=== PATIENT | female | born 1960 | race Caucasian/White ===

== ENCOUNTER 2016-11-24 05:50 | Inpatient (IN) | payer OTHER ==
[2016-11-24] VITALS (9 sets, daily range): BP systolic 98–131; BP diastolic 54–68; PULSE 78–98; RESP 19–20; TEMP 98.1; Ht 152.4 cm; Wt 57.5 kg
[~2016-11-24] VITALS: Ht 152.4 cm; Wt 57.5 kg
[2016-11-24] MEDS ORDERED: ALBUTEROL 0.5% (NEB) 2.5 MG/0.5 ML AMP INH STA (06:10)
[2016-11-24] MEDS ORDERED: IPRATROPIUM (NEB) 0.5 MG/2.5 ML AMP INH STA (06:10)
[2016-11-24] MEDS ORDERED: METHYLPREDNISOLONE 125 MG INJ IV STA (06:10)
--- NOTE | 2016-11-24 06:38 | RADRPT ---
PROCEDURE: XR Chest. CLINICAL INDICATION: Asthma exacerbation TECHNIQUE: Portable single view of the chest COMPARISON: None. FINDINGS: The heart size appears within normal limits. No acute infiltrate, pleural effusion, or overt conges tive heart failure is seen. What appears to be a 1.1 cm nodular density in the right upper lobe mos t likely represents sclerotic articulation of the right anterior first rib with the manubrium. IMPRESSION: No acute disease. Probable sclerotic right anterior first rib articulation. Oblique and lordotic v iews of the chest would help to confirm this. RPTAT: [facility] Physician Meg Date Time Electronically viewed and signed by Veronica Ledesma Physician on 11/24/2016 06:38 LE/
[2016-11-24 07:13] LABS: ADD SCAN DIFF NO
[2016-11-24 07:20] LABS: BASOPHILS % 0.3 % (0.0-2.0); EOSINOPHILS # 0.1 10^3/ul (0.0-0.5); EOSINOPHILS % 1.4 % (0.0-7.0); HEMATOCRIT 44.2 % (37.0-47.0); HEMOGLOBIN 14.2 g/dl (12.0-16.0); LYMPHOCYTES # 1.3 10^3/ul (0.8-2.9); LYMPHOCYTES % 13.4 % (15.0-51.0); MEAN CORPUSCULAR HEMOGLOBIN 29.7 pg (29.0-33.0); MEAN CORPUSCULAR HGB CONC 32.1 g/dl (32.0-37.0); MEAN CORPUSCULAR VOLUME 92.5 fl (82.0-101.0); MEAN PLATELET VOLUME 13.3 fl (7.4-10.4); MONOCYTE # 0.4 10^3/ul (0.3-0.9); MONOCYTES % 3.9 % (0.0-11.0); NEUTROPHIL # 7.6 10^3/ul (1.6-7.5); NEUTROPHILS % 80.7 % (39.0-77.0); PLATELET COUNT 103 10^3/UL (140-415); RED BLOOD COUNT 4.78 10^6/ul (4.20-5.40); WHITE BLOOD COUNT 9.4 10^3/ul (4.8-10.8)
[2016-11-24] MEDS ORDERED: GLIM2TAB PO (07:22)
[2016-11-24] MEDS ORDERED: METF500T4 PO (07:22)
[2016-11-24 07:34] LABS: POTASSIUM 4.4 mmol/L (3.5-5.1)
[2016-11-24 07:37] LABS: CREATININE 0.69 mg/dl (0.44-1.00)
[2016-11-24 07:38] LABS: CALCIUM 8.8 mg/dl (8.4-10.2)
[2016-11-24 07:49] LABS: TROPONIN-I 0.017 ng/ml (0.00-0.12)
[2016-11-24] MEDS ORDERED: ALBUTEROL 0.5% (NEB) 2.5 MG/0.5 ML AMP HHN STA (07:49)
[2016-11-24] MEDS ORDERED: ASPIRIN 325 MG TAB PO ONE (08:00)
[2016-11-24] MEDS ORDERED: ACETAMINOPHEN 325 MG TAB PO PRN ×2 (08:00→11:30)
[2016-11-24] MEDS ORDERED: ONDANSETRON 4 MG INJ IV PRN (08:00)
[2016-11-24] MEDS ORDERED: SOD CHLORIDE 0.9% 1,000 ML IV ONE (08:00)
--- NOTE | 2016-11-24 08:19 | ERA ---
ER Documentation Chief Complaint Date/Time DATE: 11/24/16 TIME: 08:13 Chief Complaint Shortness of breath. tachypneic. No hx of asthma. cough since yesterday HPI This 56-year-old female presents for progressive shortness of breath that began yesterday as well as chest pain pain with cough. She has a history of diabetes but does not have a physician in the [place]. She has seen a doctor in [place] before. She has no history of asthma and has never smoked and neither has her . She denies any nausea vomiting or weakness. ROS All systems reviewed and are negative except as per history of present illness. Medications Home Meds Reported Medications Glimepiride* (Glimepiride*) Unknown Strength Tablet, PO WITH BREAKFAST DINNE, TAB 11/24/16 Metformin* (Glucophage*) Unknown Strength Tab, PO WITH LUNCH DINNER, #60 TAB 11/24/16 Allergies Allergies: Coded Allergies: No Known Allergy (Unverified , 11/24/16) PMhx/Soc History of Surgery: No Anesthesia Reaction: No Hx Neurological Disorder: No Hx Respiratory Disorders: No Hx Cardiac Disorders: No Hx Psychiatric Problems: No Hx Miscellaneous Medical Probl: Yes (DM) Hx Alcohol Use: No Hx Substance Use: No Hx Tobacco Use: No Smoking Status: Never smoker Physical Exam Vitals Vital Signs Date Time Temp Pulse Resp B/P Pulse Ox O2 Delivery O2 Flow Rate FiO2 11/24/16 07:51 98.3 108 24 113/74 95 Nasal Cannula 2.0 11/24/16 06:30 3.0 11/24/16 06:25 94 22 97 Nasal Cannula 3.0 11/24/16 06:05 Nasal Cannula 2.0 11/24/16 06:05 101 33 143/101 95 Room Air 11/24/16 06:05 Nasal Cannula 2 11/24/16 05:52 98.3 102 30 135/84 92 Physical Exam Const: [] Mild distress, tachypnea Head: Atraumatic Eyes: Normal Conjunctiva ENT: Normal External Ears, Nose and Mouth. Neck: Full range of motion..~ No meningismus. Resp: Loud pronounced bilateral expiratory wheezes, mild tachypnea Cardio: Regular mild tachycardia with occasional premature beats, no murmurs Abd: Soft, non tender, non distended. Normal bowel sounds Skin: No petechiae or rashes Ext: No cyanosis, or edema Neur: Awake and alert and oriented 3, no focal deficit Psych: Normal Mood and Affect Result Diagram: 11/24/1662711/24/16627 Results 24 hrs Laboratory Tests Test 11/24/16 06:28 Anion Gap 17 B-Type Natriuretic Peptide 61PG/ML Basophils # 0.010^3/ul Basophils % 0.3% Blood Urea Nitrogen 23mg/dl Calcium Level 8.8mg/dl Carbon Dioxide Level 28mmol/L Chloride Level 100mmol/L Creatinine 0.69mg/dl Eosinophils # 0.110^3/ul Eosinophils % 1.4% Glucose Level 259mg/dl Hematocrit 44.2% Hemoglobin 14.2g/dl Lymphocytes # 1.310^3/ul Lymphocytes % 13.4% Mean Corpuscular Hemoglobin 29.7pg Mean Corpuscular Hemoglobin Concent 32.1g/dl Mean Corpuscular Volume 92.5fl Mean Platelet Volume 13.3fl Monocytes # 0.410^3/ul Monocytes % 3.9% Neutrophils # 7.610^3/ul Neutrophils % 80.7% Nucleated Red Blood Cells # 0.010^3/ul Nucleated Red Blood Cells % 0.0/100WBC Platelet Count 13306^3/UL Potassium Level 4.4mmol/L Red Blood Count 4.7810^6/ul Red Cell Distribution Width 12.0% Sodium Level 141mmol/L Troponin I 0.017ng/ml White Blood Count 9.410^3/ul Current Medications Medications (Trade) Dose Ordered Sig/Ramu Route PRN Reason Start Time Stop Time Status Last Admin Dose Admin Albuterol (Proventil 0.5% (Neb)) 10 mg ONCE STAT INH 11/24/16 06:10 11/24/16 06:14 DC 11/24/16 06:24 Ipratropium Marcellus (Atrovent 0.02% (Neb)) 1 mg ONCE STAT INH 11/24/16 06:10 11/24/16 06:14 DC 11/24/16 06:24 Methylprednisolone Sodium Succinate (Solu-Medrol) 125 mg ONCE STAT IV 11/24/16 06:10 11/24/16 06:14 DC 11/24/16 06:34 Aspirin (Aspirin) 325 mg ONCE ONCE PO 11/24/16 08:00 11/24/16 08:01 DC 11/24/16 07:50 Albuterol 5 mg 5 mg ONCE STAT HHN 11/24/16 07:49 11/24/16 07:50 DC Sodium Chloride (NS) 1,000 ml @ 1,000 mls/hr Q1H ONCE IV 11/24/16 08:00 11/24/16 08:59 11/24/16 08:01 Ondansetron HCl (Zofran Inj) 4 mg ER BRIDGE PRN IV NAUSEA AND/OR VOMITING 11/24/16 08:00 11/25/16 07:59 Acetaminophen (Tylenol Tab) 650 mg ER BRIDGE PRN PO MILD PAIN/FEVER 11/24/16 08:00 11/25/16 07:59 Procedures/MDM Patient with no consistent medical care with new onset reactive airway disease. It is unusual to develop reactive airway disease at this age. No obvious signs of infection. Patient with frequent premature atrial contractions even before given albuterol. Significant wheezing. Patient was given Solu-Medrol IV , albuterol and Atrovent breathing treatments. After large breathing treatment she was still wheezing. Tachypnea had resolved and patient was feeling better. Has a frequent premature beats and risk factors I believe the patient should be evaluated for full cardiac workup as well as possible evaluation of new onset lung disease. She is given a liter of normal saline for hyperglycemia. She was given 325 mg p.o. aspirin. Spoke with Dr. Law who will be admitting. EKG interpretation: Normal sinus rhythm rate of 97, premature atrial contractions, normal axis, no ST or T-wave changes concerning for acute ischemia children's entertainer interpretation: Normal sinus rhythm with occasional mild sinus tachycardia with frequent premature atrial contractions. Chest x-ray interpretation: Mild hyperinflated lungs, no infiltrate, no pneumothorax, no pulmonary edema, no fractures Departure Diagnosis: Primary Impression: Dyspnea Additional Impressions: Reactive airway disease Premature atrial contractions Hyperglycemia Thrombocytopenia Condition: Stable ELENA DENTON DO Nov 24, 2016 08:19
[2016-11-24] MEDS: SOD CHLORIDE 0.45% 500 ML IV SCH ×2 (11:29→18:38)
[2016-11-24] MEDS ORDERED: NACL 0.9% 3 ML SYG IV SCH (11:30)
[2016-11-24] MEDS ORDERED: NITROGLYCERIN (SL) 0.4 MG TAB SL PRN (11:30)
[2016-11-24] MEDS ORDERED: LORAZEPAM 0.5 MG TAB PO PRN (11:30)
[2016-11-24] MEDS ORDERED: DOCUSATE SODIUM 100 MG CAP PO PRN (11:30)
[2016-11-24] MEDS ORDERED: morphine 2 MG INJ IV PRN (11:30)
[2016-11-24] MEDS ORDERED: ONDANSETRON 4 MG TAB PO PRN (11:30)
[2016-11-24] MEDS ORDERED: GLUCAGON 1 MG INJ IM PRN (12:30)
[2016-11-24] MEDS ORDERED: GLUCOSE GEL 15 GRAM TUBE PO PRN ×2 (12:30)
[2016-11-24] MEDS ORDERED: DEXTROSE 50% 50 ML SYRINGE IV PRN ×2 (12:30)
[2016-11-24] MEDS ORDERED: GLUCOSE GEL 15 GRAM TUBE BUCCAL PRN (12:30)
[2016-11-24 13:17] LABS: CK-MB 1.43 ng/ml (0.0-2.4)
[2016-11-24 13:20] LABS: TROPONIN-I 0.019 ng/ml (0.00-0.12)
[2016-11-24] MEDS: INSULIN ASPART [NOVOLOG] 3 ML PEN SC SCH ×3 (14:15→20:22)
[2016-11-24] MEDS: metFORMIN 500 MG TAB PO SCH (18:00)
--- NOTE | 2016-11-24 18:22 | RADRPT ---
Echocardiogram Report Patient Name: ABNER JEFFREY Gender: Female Date: 1960 Study Date: 24-Nov-2016 Logging Equipment Operator: Carroll Bella [facility] Location: 5550 Ref. Physician: PAULETTE WANG Quality: Good Procedures: Transthoracic echocardiogram with complete 2D, M-Mode, and doppler examination. Indications: Chest Pain. 2D/M Mode Doppler Measurement Value Normal Ranges Measurement Value Normal Ranges LVIDd 2D 4.8 3.5 - 5.6 cm AV Peak Jai 1.5 m/sec LVIDs 2D 3.3 2.1 - 4.1 cm AV Peak PG 9.0 mmHg FS 2D 32.8 % LVOT Peak Jai 1.1 m/sec LVPWd 2D 0.8 0.6 - 1.1 cm LVOT Peak PG 5.0 mmHg IVSd 2D 0.9 0.6 - 1.1 cm MV E Peak Jai 0.8 m/sec IVS/LVPW 2D 1.0 MV A Peak Jai 0.5 m/sec AoR Diam 2D 2.3 2.0 - 3.7 cm MV E/A 1.7 LA/Ao 2D 1 0 - 1 MV Decel Time 197 msec EDV 2D 114.0 cm3 MV E/A 1.7 ESV 2D 34.6 cm3 TR Peak Jai 2.2 m/sec LA Dimen 2D 3.4 2.3 - 4.0 cm TR Peak PG 19.0 mmHg RVSP 22.0 mmHg Findings Left Ventricle: Normal left ventricular systolic function. Normal left ventricular cavity size. Normal left ventricular wall thickness. Ejection fraction is visually estimated at 65 %. Tissue Doppler/Mitral Doppler indices are within normal limits. Right Ventricle: Normal right ventricular size. Normal right ventricular systolic function. Left Atrium: The left atrium is normal in size. Right Atrium: The right atrium is normal in size. Mitral Valve: Normal appearance and function of the mitral valve with trace physiologic regurgitation. Aortic Valve: Normal appearance of the aortic valve. No significant aortic stenosis or insufficiency. Tricuspid Valve: Normal appearance of the tricuspid valve. Estimated peak PA systolic pressure 22 mmHg. There is trace to mild tricuspid regurgitation. Pulmonic Valve: Normal pulmonic valve appearance. Pericardium: Normal pericardium with no significant pericardial effusion. Aorta: Normal aortic root. IVC: Normal size and normal respiratory collapse consistent with normal right atrial pressure. Conclusions Normal left ventricular systolic function. Normal left ventricular cavity size. Normal left ventricular wall thickness. Ejection fraction is visually estimated at 65 %. Tissue Doppler/Mitral Doppler indices are within normal limits. No significant valvular stenosis or regurgitation seen. Estimated peak PA systolic pressure 22 mmHg based on RA pressure of 3 mmHg. Electronically Signed By: Jordi Cowart 24-Nov-2016 18:21:42 -0800 Patient Name: ABNER JEFFREY Study Date: 24-Nov-2016 [id number]
[2016-11-24] MEDS ORDERED: GUAIFENESIN/DM 5ML CUP PO PRN (18:30)
[2016-11-24] MEDS ORDERED: ALBUTEROL/IPRATROPIUM (NEB) 3 ML AMP HHN PRN (18:30)
[2016-11-24 18:56] LABS: CK-MB 1.59 ng/ml (0.0-2.4)
[2016-11-24 18:59] LABS: TROPONIN-I 0.015 ng/ml (0.00-0.12)
[2016-11-24] MEDS ORDERED: INSULIN GLARGINE [LANtus] 3 ML PEN SC SCH (20:00)
[2016-11-24] MEDS: ALBUTEROL/IPRATROPIUM (NEB) 3 ML AMP HHN SCH (20:42)
--- NOTE | 2016-11-24 23:57 | HP ---
DATE OF ADMISSION: 11/24/2016 HEMATOLOGY ONCOLOGY CONSULTANT: None. CHIEF COMPLAINT: Cough and congestion. HISTORY OF PRESENT ILLNESS: This is a 56-year-old female with past medical history of diabetes norma itus who presents to [facility] secondary to having difficulty sleeping last night secondary to having excessive cough without any shortness of breath and complained of having mild p leuritic pain secondary to excessive cough. Upon arrival to emergency room, the patient's WBC was f ound to be 9.4, platelet 103. Chest x-ray showed no acute disease, probably sclerotic right anterior first trip articulation, obli que lordotic view of the chest would help to confirm this. The patient was treated with aspirin 125 mg, methylprednisone, breathing treatment and normal saline in the course of the emergency room, deangelo metzger unfortunately secondary to the methylprednisone the patient's glucose has been elevated to 369 and 380s. The patient stated that she has been compliant with her medications at home. She checked her blood glucose once a month. PAST MEDICAL AND SURGICAL HISTORY: Diabetes mellitus. MEDICATIONS: 1. Metformin. 2. Glyburide. ALLERGIES: NO KNOWN DRUG ALLERGIES. FAMILY HISTORY: No family history of coronary artery disease, ME or CVA. Positive for diabetes rick litus. SOCIAL HISTORY: Negative x3 for smoking, alcohol, illicit drugs. REVIEW OF SYSTEMS: Positive for difficulty with hearing which is chronic. Positive for cough, ramón estion. She denies any headache, dizziness, lightheadedness. No change in visual acuity, diplopia, photophobia. No abdominal pain, no nausea, vomiting, diarrhea, no shortness of breath. No dysuria , hematuria, urgency, incontinence or any other discomfort. PHYSICAL EXAMINATION: VITAL SIGNS: Temperature 98.0, pulse 72, respiration 19, blood pressure 99/56, oxygen 98% in room a ir. GENERAL APPEARANCE: The patient is lying in bed comfortably without any distress. She is awake, al ert, oriented. She is able to answer my questions properly. EYES AND ENT: Conjunctivae and lids are normal. Pupils are normal. Extraocular normal. Hearing g rossly normal. Lips are normal. Oral mucosa is moist. NECK: Supple. Trachea is midline. No lymphadenopathy. RESPIRATORY: Effort is normal. Clear to auscultate bilaterally. CARDIOVASCULAR: Normal S1, S2. Regular rhythm and rate. No murmur, no bruits, no edema. Peripher al pulses, radial pulses palpable. Cap refill is normal. CHEST: Normal expansion of thorax during inspiration. GASTROINTESTINAL: Abdomen is soft, nontender, not distended. Bowel sounds present. No guarding, n o rebound. GENITOURINARY: Deferred. MUSCULOSKELETAL: Upper and lower extremities within normal limits. Full range of motion, strength 5/5 both upper and lower extremities. NEUROLOGIC: Cranial nerves II through XII are grossly intact. PSYCHIATRIC: Normal judgment and insight. Alert and oriented x3. Mood and affect is normal. LABORATORY WORK AND IMAGING: Sodium 141, potassium 4.4, chloride 100, bicarbonate 28, BUN 23, creat inine 0.67, glucose 259, calcium 8.8. Troponin negative x2. WBC 9.4, hemoglobin 14.3, hematocrit 4 4.2, platelets 103. ASSESSMENT AND PLAN: 1. Upper respiratory tract infection. 2. Diabetes mellitus, uncontrolled. 3. Pleuritic pain secondary to excessive cough. Patient has been admitted to telemetry floor. We will follow up serial troponin. Hemoglobin A1c. The patient has been placed on metformin, Lantus, insulin sliding scale, low-carbohydrate diet. Obtain a 2D echocardiogram. Place the patient on ying thing treatment, IV fluid. We will continue to monitor patient closely. Further recommendations, m anagement and treatment as per clinical course. Total amount of time was spent for this admission workup 40 minutes. Dictated By: PAULETTE WANG MD PN/NTS Conf#: [id number] DID#: [id number]
[2016-11-25] VITALS (10 sets, daily range): BP systolic 91–108; BP diastolic 50–64; PULSE 77–91; RESP 18–20
[2016-11-25] MEDS ORDERED: ACCUCHECK XX SCH (02:00)
[2016-11-25] MEDS: ALBUTEROL/IPRATROPIUM (NEB) 3 ML AMP HHN SCH ×3 (02:35→13:45)
[2016-11-25] MEDS ORDERED: PANTOPRAZOLE (EC) 40 MG TAB PO SCH (06:00)
[2016-11-25 07:57] LABS: ADD SCAN DIFF NO
[2016-11-25 08:03] LABS: HEMATOCRIT 37.5 % (37.0-47.0); HEMOGLOBIN 12.1 g/dl (12.0-16.0); LYMPHOCYTES % 10.5 % (15.0-51.0); MEAN CORPUSCULAR HEMOGLOBIN 30.1 pg (29.0-33.0); MEAN CORPUSCULAR HGB CONC 32.3 g/dl (32.0-37.0); MEAN CORPUSCULAR VOLUME 93.3 fl (82.0-101.0); MEAN PLATELET VOLUME 13.2 fl (7.4-10.4); MONOCYTE # 0.6 10^3/ul (0.3-0.9); MONOCYTES % 6.8 % (0.0-11.0); NEUTROPHIL # 7.5 10^3/ul (1.6-7.5); NEUTROPHILS % 82.3 % (39.0-77.0); PLATELET COUNT 117 10^3/UL (140-415); RED BLOOD COUNT 4.02 10^6/ul (4.20-5.40); RED CELL DISTRIBUTION WIDTH 12.2 % (11.5-14.5); WHITE BLOOD COUNT 9.1 10^3/ul (4.8-10.8)
[2016-11-25 08:23] LABS: POTASSIUM 4.7 mmol/L (3.5-5.1)
[2016-11-25 08:26] LABS: CALCIUM 8.2 mg/dl (8.4-10.2); CREATININE 0.88 mg/dl (0.44-1.00)
[2016-11-25 08:27] LABS: CHOL/HDL RATIO 3.1 RATIO; MAGNESIUM 1.9 mg/dl (1.7-2.5)
[2016-11-25 08:57] LABS: THYROID STIMULATING HORMONE 0.254 MIU/L (0.465-4.680)
[2016-11-25] MEDS: metFORMIN 500 MG TAB PO SCH ×2 (08:57→18:34)
[2016-11-25] MEDS ORDERED: ASPIRIN 81 MG TAB PO SCH (09:00)
[2016-11-25] MEDS ORDERED: ENOXAPARIN 40 MG/0.4 ML SYG SC SCH (09:00)
[2016-11-25] MEDS: INSULIN ASPART [NOVOLOG] 3 ML PEN SC SCH ×2 (09:03→11:37)
[2016-11-25] MEDS ORDERED: INSULIN GLARGINE [LANtus] 3 ML PEN SC ONE (14:00)
--- NOTE | 2016-11-25 15:57 | PDOCDIS ---
Discharge Instructions CONDITION Patient Condition: Stable HOME CARE INSTRUCTIONS: Special Diet: Cardiac, 1800 ricardo ACTIVITY: Activity Restrictions: No Restrictions FOLLOW UP/APPOINTMENTS Appointments FOllow up with PCP in one week PAULETTE WANG MD Nov 25, 2016 15:57
[2016-11-25] MEDS ORDERED: ASPI81TA3 PO (15:59)
[2016-11-25] MEDS ORDERED: GLIP5TAB13 PO (15:59)
[2016-11-25] MEDS ORDERED: UDROBDM PO (15:59)
[2016-11-25] MEDS ORDERED: METF500T PO (15:59)
[2016-11-25] MEDS ORDERED: AZIT250T6 PO (15:59)
[2016-11-25] MEDS ORDERED: AZITHROMYCIN 250 MG TAB PO ONE (16:30)
--- NOTE | 2016-11-25 17:05 | DS ---
DATE OF ADMISSION: 11/24/2016 DATE OF DISCHARGE: 11/25/2016 CONSULTANTS: art educator. DIAGNOSES: 1. Upper respiratory tract infection. 2. Uncontrolled diabetes mellitus with hemoglobin 11.9. 3. Pleuritic pain secondary to excessive cough. PROCEDURE: A 2-D echocardiogram which showed ejection fraction 65%. No significant valvular stenos is or regurgitation was seen. Estimated peak PA systolic pressure 20 mmHg. VITAL SIGNS: Temperature 97.3, pulse 85, respiration 19, blood pressure 91/50, oxygen saturation 94 % to 95%. LABORATORY: WBC 9.1, hemoglobin 12.1, hematocrit 37.5, platelets 117. Sodium 141, potassium 4.7, c hloride 100, bicarbonate 28, BUN 34, creatinine 0.88, glucose 207, hemoglobin 11.3, total cholestero l 172. Triglyceride 154, LDL 106, HDL 55. HOSPITAL COURSE: This is a 56-year-old female with past medical history of diabetes mellitus and no ncompliance with medication, who presents to [facility] secondary to having diffic ulty sleeping and having excessive cough, nasal congestion, shortness of breath and complaining of h aving pleuritic discomfort secondary to having excessive cough. [facility], the patient's WBC was found to be 9.41, platelets of 103. Chest x-ray showed no acute disease. The patient was treatment with aspirin, Solu-Medrol 125 mg, breathing treatment, normal sa line and patient's glucose was found to be elevated at 369 and 380. Hemoglobin A1c was found to be 11.3. Patient is a very poor historian and admits that she has not been compliant with some of her diabetic medication. The patient was started on insulin sliding scale, low carbohydrate diet. Seen and evaluated by the conservation educator. The patient was placed on Lantus, although, this time the patient is requesting that she would like to be discharged on oral pills and diabetic medication onl y. Her blood glucose has been improving at this time is 207. At this time, patient's vitals are st able. Patient has been able to tolerate oral intake. The cough and congestion has been improving s ignificantly. Patient for her upper respiratory tract infection was placed on breathing treatment a nd azithromycin. At this time, the patient is medically stable to be discharged home with a close f ollowup with her primary care physician as outpatient. The patient's blood glucose will be evaluated prior to discharge. If it is elevated the patient's discharge will be held until the following day . Dictated By: PAULETTE GRAVES/NTS Conf#: [id number] DID#: [id number]
[2016-11-25] MEDS ORDERED: INSULIN ASPART [NOVOLOG] 3 ML PEN SC SCH (18:05)
[2016-11-26] MEDS ORDERED: INSULIN GLARGINE [LANtus] 3 ML PEN SC SCH (08:00)
== END 2016-11-25 19:07 | disposition home or self-care (01) | DRG 153 ==
LOC: E/R 05:50 → MS4 09:44
PROVIDERS: ADMIT Family Medicine; ATTEND Family Medicine
DX: J06.9 Acute upper respiratory infection, unspecified (principal); E11.65 Type 2 diabetes mellitus with hyperglycemia; R07.81 Pleurodynia; R05 Cough
CPT/HCPCS: 71010; 80048; 80061; 82550; 82553; 82962; 83036; 83735; 83880; 84443; 84484; 85025; 87400; 93005; 93306; 94640; 94644; 94664; 96374; J1815; J2930; J7030